=== PATIENT | male | born 1990 | race Caucasian/White ===

== ENCOUNTER 2018-04-17 11:51 | Emergency (ER) | payer SELFPAY ==
[~2018-04-17] VITALS: Ht 182.9 cm; Wt 63.5 kg
[2018-04-17 11:58] VITALS: BP_SYST 134
[2018-04-17 13:02] VITALS: BP_SYST 134
== END 2018-04-17 13:02 | disposition home or self-care (01) ==
LOC: SED 11:51
DX: S40.022A Contusion of left upper arm, initial encounter (principal); S20.229A Contusion of unspecified back wall of thorax, initial encounter; R03.0 Elevated blood-pressure reading, without diagnosis of hypertension; V43.52XA Car driver injured in collision with other type car in traffic accident, initial encounter; Y93.89 Activity, other specified; Y92.410 Unspecified street and highway as the place of occurrence of the external cause; Y99.8 Other external cause status
CPT/HCPCS: 72072-TC; 99284

== ENCOUNTER 2019-08-02 17:49 | Emergency (ER) | payer MEDICAID ==
[~2019-08-02] VITALS: Ht 180.3 cm; Wt 68.9 kg
--- NOTE | 2019-08-02 17:50 | NUR ---
Patient to ER bed 3 to gown for evaluation. Side rails up.
[2019-08-02 17:51] VITALS: BP_SYST 132
[2019-08-02] MEDS ORDERED: NACL 0.9% 1,000 ML IV ONE (17:57)
--- NOTE | 2019-08-02 18:00 | NUR ---
Pt came to ER for SOB, pain in chest. Pt states he has hx of pneumothorax 2016 and is experiencing similar pain. Pt c/o pain with inspiration, wheeze with exhale, pain to L side of chest.
--- NOTE | 2019-08-02 18:05 | NUR ---
ER Dr. Langford at bedside examining patient.
--- NOTE | 2019-08-02 18:10 | NUR ---
#20 gauge angiocath placed to R AC. Use of asceptic technique. Opsite placed over site. Blood return noted. Blood for lab drawn from site. Flushed with 10 cc of normal saline. No evidence of infiltration noted. Patient tolerated well.
--- NOTE | 2019-08-02 18:20 | NUR ---
Bedside chest x ray completed
[2019-08-02 18:44] LABS: BASOPHILS % (AUTO) 0.3 % (0.0-2.0); BILIRUBIN,URINE NEGATIVE (NEGATIVE); BLOOD, URINE NEGATIVE (NEGATIVE); COLOR,URINE YELLOW (YELLOW); EOSINOPHILS # (AUTO) 0.2 K/uL (0.0-0.4); EOSINOPHILS % (AUTO) 2.1 % (0.0-4.0); GLUCOSE,URINE NEGATIVE (NEGATIVE); HEMATOCRIT 44.2 % (36-54); HEMOGLOBIN 15.1 g/dL (14.0-18.0); KETONES,URINE TRACE (NEGATIVE); LEUKOCYTE ESTERASE ,URINE NEGATIVE (NEGATIVE); LYMPHOCYTES # (AUTO) 2.2 K/uL (1.0-5.5); LYMPHOCYTES % (AUTO) 21.1 % (20.5-51.5); MEAN CORPUSCULAR HEMOGLOBIN 32 pg (27-31); MEAN CORPUSCULAR HGB CONC 34 % (32-36); MEAN CORPUSCULAR VOLUME 93 fL (79.0-98.0); MONOCYTES # (AUTO) 0.9 K/uL (0.0-1.0); MONOCYTES % (AUTO) 8.7 % (1.7-9.3); NEUTROPHILS # (AUTO) 7.1 K/uL (1.8-7.7); NEUTROPHILS % (AUTO) 67.8 % (40.0-70.0); NITRITE, URINE NEGATIVE (NEGATIVE); PH,URINE 8.5 (5.0-8.0); PLATELET COUNT (AUTO) 214 K/uL (130-430); PROTEIN URINE 2+ (NEGATIVE); RED BLOOD CELL COUNT(AUTO) 4.74 MIL/uL (4.2-6.2); RED CELL DISTRIBUTION WIDTH 12.7 % (9.0-15.0); UROBILINOGEN,URINE 0.2 (0.2-1.0); WHITE BLOOD COUNT (AUTO) 10.4 K/uL (4.8-10.8)
[2019-08-02 18:58] LABS: CLARITY/URINE HAZY (CLEAR)
[2019-08-02 19:00] LABS: BARBITURATE, URINE NEGATIVE (NEG <=200)
[2019-08-02 19:01] LABS: BENZODIAZEPINE, URINE NEGATIVE (NEG <=150); CANNABINOID, URINE POSITIVE (NEG <=50); COCAINE, URINE POSITIVE (NEG <=150); METHAMPHETAMINES SCREEN,URINE POSITIVE (NEG <=500); OPIATE, URINE NEGATIVE (NEG <=100); PHENCYCLIDINE SCREEN,URINE NEGATIVE (NEG <=25); UR TRICYCLIC ANTIDEPRESSANTS NEGATIVE (NEG <=300); URINE AMPHETAMINE NEGATIVE (NEG <=500); URINE METHADONE NEGATIVE (NEG <=200); URINE OXYCODONE SCREEN NEGATIVE (NEG <=100); URINE PROPOXYPHENE SCREEN NEGATIVE (NEG <=300)
[2019-08-02 19:02] LABS: ANION GAP 6 (5-15); CHLORIDE 104 mmol/L (98-107); CREATININE 0.95 mg/dL (0.55-1.30); GLUCOSE 102 mg/dL (70-99); POTASSIUM 3.9 mmol/L (3.5-5.1); SODIUM SERUM 138 mmol/L (136-145); UREA NITROGEN, BLOOD 19 mg/dL (8-21)
[2019-08-02 19:04] LABS: GFR AFRICAN AMERICAN 123 mL/min (>90)
[2019-08-02 19:07] LABS: RBC,URINE 0-3 /HPF (0-3)
[2019-08-02 19:08] LABS: BACTERIA,URINE MODERATE /HPF (None Seen); MUCUS,URINE 2+ /LPF (None Seen); URINE AMORPHOUS PHOSPHATES 3+ /HPF (None Seen)
[2019-08-02 19:09] LABS: ALANINE AMINOTRANSFERASE 22 U/L (12-78); ALBUMIN 4.1 g/dL (3.4-4.8); AMYLASE 31 U/L (0-100); ASPARTATE AMINOTRANSFERASE 11 U/L (10-37); LIPASE 215 U/L (73-393); TOTAL BILIRUBIN 0.3 mg/dL (0.0-1.0)
[2019-08-02] MEDS ORDERED: ALBUTEROL SULFATE 0.083% 2.5 MG/3 ML VIAL.NEB INH ONE (19:15)
[2019-08-02] MEDS ORDERED: methylPREDNISolone SOD SUCC/PF 62.5 MG/ML VIAL IVP ONE (19:15)
[2019-08-02] MEDS ORDERED: IPRATROPIUM BROM 0.5 MG/2.5 ML VIAL.NEB (ATROVENT) INH ONE (19:15)
[2019-08-02 19:16] LABS: ALCOHOL, BLOOD < 3 mg/dL (<10)
--- NOTE | 2019-08-02 19:28 | NUR ---
Patient given written and verbal discharge instructions and verbalizes understanding. ER MD discussed with patient the results and treatment provided. Patient in stable condition. ID arm band removed. IV catheter removed intact and dressing applied, no active bleeding. Rx of Prednisone, Z Pack given. Patient educated on pain management and to follow up with PMD. Pain Scale 0. Opportunity for questions provided and answered. Medication side effect fact sheet provided. To be discharged after breathing treatment.
[2019-08-02 19:30] VITALS: BP_SYST 132
--- NOTE | 2019-08-02 19:31 | NUR ---
pt will be dc'd home after his breathing tx is complete.
--- NOTE | 2019-08-02 19:33 | NUR ---
care endorsed to Tomás RODRÍGUEZ
[2019-08-02 20:10] LABS: PROTHROMBIN TIME 9.9 SECS (9.5-12.5)
== END 2019-08-02 19:30 | disposition home or self-care (01) ==
LOC: SED 17:49
DX: J20.9 Acute bronchitis, unspecified (principal); F17.210 Nicotine dependence, cigarettes, uncomplicated; F12.90 Cannabis use, unspecified, uncomplicated; F15.10 Other stimulant abuse, uncomplicated; F14.10 Cocaine abuse, uncomplicated; Z87.09 Personal history of other diseases of the respiratory system
CPT/HCPCS: 36415; 71045; 80053; 80307; 81000; 82150; 83690; 83880; 84484; 85025; 85610; 85730; 87086; 93005; 94640; 96374; 99284; G0481; G0482; J2930; J7030; J7613